=== PATIENT | male | born 1975 | race Caucasian/White ===

== ENCOUNTER 2016-08-09 14:56 | Emergency (ER) | payer OTHER ==
[2016-08-09 15:32] LABS: BASOPHIL 0.5 % (0-2); HCT 46.8 % (42.0-52.0); HGB 16.7 g/dl (13.2-18.0); LYMPHOCYTE 30.4 % (15-48); MCH 29.9 pg (25.0-31.0); MCHC 35.7 g/dL (32.0-36.0); MCV 83.9 fL (78.0-100.0); MONOCYTE 9.3 % (0-12); MPV 10.9 fL (6.0-9.5); NEUTROPHIL 57.8 % (41-80); PLT 181 K/uL (150-400); RBC 5.58 M/uL (4.70-6.00); WBC 10.1 K/uL (4.0-10.5)
[2016-08-09 15:33] LABS: BILIRUBIN NEGATIVE (NEGATIVE); BLOOD NEGATIVE Ery/uL (NEGATIVE); CLARITY CLEAR (CLEAR); COLOR YELLOW (YELLOW); GLUCOSE (U) NORMAL (NORMAL); KETONE (U) NEGATIVE (NEGATIVE); LEUKOCYTES 1+ Leu/uL (NEGATIVE); NITRITE NEGATIVE (NEGATIVE); PROTEIN NEGATIVE (NEGATIVE); SPECIFIC GRAVITY <=1.005 (1.001-1.030); UROBILINOGEN 0.2 mg/dL (0.2-1.0)
[2016-08-09 15:51] LABS: ALBUMIN 4.6 g/dL (3.5-5.0); BILIRUBIN - TOTAL 1.5 mg/dL (0.1-1.0); POTASSIUM 3.9 mmol/L (3.5-5.1); TOTAL PROTEIN 7.6 g/dL (6.4-8.3)
== END 2016-08-09 18:08 | disposition home or self-care (01) ==
LOC: FER 14:56
PROVIDERS: Emergency Medicine
DX: K80.20 Calculus of gallbladder without cholecystitis without obstruction (principal)
CPT/HCPCS: 36415; 80053; 81001; 82150; 83690; 85025; Q9967